=== PATIENT | male | born 1985 | race Caucasian/White ===

== ENCOUNTER 2023-11-23 16:38 | Emergency (ER) | payer MEDICAID ==
[~2023-11-23] VITALS: Ht 188 cm; Wt 90.7 kg
[2023-11-23 17:08] VITALS: BP 134/69; PULSE 98; RESP 18; TEMP 97; O2SAT 98
[2023-11-23] MEDS ORDERED: IBUPROFEN 600 MG TAB PO ONE (18:00)
[2023-11-23] MEDS ORDERED: IBUPROFEN 600 MG TAB ONE (21:01)
== END 2023-11-23 17:59 | disposition left against medical advice (07) ==
LOC: MED 16:38
DX: M67.432 Ganglion, left wrist (principal); R07.89 Other chest pain; R03.0 Elevated blood-pressure reading, without diagnosis of hypertension; Z79.899 Other long term (current) drug therapy
CPT/HCPCS: 99281